=== PATIENT | female | born 1930 | race African-American/Black ===

== ENCOUNTER 2017-12-06 09:56 | Emergency (ER) | payer OTHER, MEDICAID ==
[~2017-12-06] VITALS: Ht 165.1 cm; Wt 70.0 kg
[~2017-12-06 09:56] MED LIST: DYAZ37.57 PO; ENAL10TA7 PO; GLIP5 OR; METF-324 PO; MEVA40TA PO; POTA-267 PO
[2017-12-06 09:59] VITALS: BP 242/111; PULSE 75; RESP 16; TEMP 97.6; O2SAT 97
[2017-12-06] MEDS ORDERED: DEXTROSE 50% IN WATER 50 ML SYRINGE ONE (10:03)
[2017-12-06] MEDS ORDERED: SODIUM CHLORIDE 0.9% FLUSH 10 ML FLUSH IVF PRN (10:15)
--- NOTE | 2017-12-06 10:35 | PD ---
HPI Chief Complaint: Abnormal Results Time Seen by Provider: 10:09 Travel History International Travel<30 days: No Contact w/Intl Traveler<30days: No Traveled to known affect area: No History of Present Illness HPI Patient is a 87-year-old female with history of hypertension, diabetes currently taking metformin as well as glyburide, presents the emergency room for evaluation of hypoglycemia. As per EMS, they were called to the home earlier this morning by patient's son as patient appeared altered. When EMS arrived on scene, blood sugar was 30. EMS were unable to obtain an IV line on route to the emergency room, no meds were given to her by EMS. Upon arrival to the ER, 1 amp of D50 was given to patient as well as a juice cup, patient currently alert and oriented 3. Patient reports that she is a diabetic, reports that her son usually wakes her up early to give her her breakfast. Reports that she skipped breakfast this morning. Patient reports that she did not take her morning meds. Patient reports that she feels fine at this time, patient with no complaints. Patient denies any chest pain or shortness of breath, patient denies any abdominal pain, denies any nausea or vomiting. Patient with no other complaints at this time. PFSH Past Medical History Cancer: Yes (Breast Ca) Diabetes: Yes Diminished Hearing: No Hypertension: Yes Tetanus Vaccination: < 5 Years Influenza Vaccination: Yes ?: Not Menopausal: Yes Past Surgical History Mastectomy: Yes (rt breast) Social History Alcohol Use: No Tobacco Use: No Substance Use: No Allergies-Medications (Allergen,Severity, Reaction): Coded Allergies: penicillin G (Unverified Allergy, Severe, RASHES, 03/28/17) codeine (Unverified Allergy, Intermediate, RASHES, 03/28/17) Reported Meds & Prescriptions Reported Meds & Active Scripts Active Reported Glipizide 5 Mg Tab 5 Mg OR BID Dyazide (Triamterene/HCTZ) 37.5 Mg/25 Mg Cap 37.5 - PO DAILY Klor-Con 10 (Potassium Chloride) 10 Meq Tab 10 Meq PO DAILY Enalapril Maleate 10 Mg Tab 10 Mg PO DAILY Lovastatin 40 Mg Tab 40 Mg PO DAILY Glucophage (Metformin HCl) 1,000 Mg Tab 1,000 Mg PO BID Review of Systems General / Constitutional: No: Fever Eyes: No: Visual changes HENT: No: Headaches Cardiovascular: No: Chest Pain or Discomfort Respiratory: No: Shortness of Breath Gastrointestinal: No: Abdominal Pain Genitourinary: No: Dysuria Musculoskeletal: No: Pain Skin: No Rash Neurologic: No: Weakness Psychiatric: No: Depression Endocrine: No: Polydipsia Hematologic/Lymphatic: No: Easy Bruising Physical Exam Narrative GENERAL: No acute distress, nontoxic SKIN: Focused skin assessment warm/dry. HEAD: Atraumatic. Normocephalic. EYES: Pupils equal and round. No scleral icterus. No injection or drainage. ENT: No nasal bleeding or discharge. Mucous membranes pink and moist. NECK: Trachea midline. No JVD. CARDIOVASCULAR: Regular rate and rhythm. No murmur appreciated. RESPIRATORY: No accessory muscle use. Clear to auscultation. Breath sounds equal bilaterally. GASTROINTESTINAL: Abdomen soft, non-tender, nondistended. Hepatic and splenic margins not palpable. MUSCULOSKELETAL: No obvious deformities. No clubbing. No cyanosis. No edema. NEUROLOGICAL: Awake and alert. No obvious cranial nerve deficits. Motor grossly within normal limits. Normal speech. PSYCHIATRIC: Appropriate mood and affect; insight and judgment normal. Data Data Last Documented VS Vital Signs Date Time Temp Pulse Resp B/P (MAP) Pulse Ox O2 Delivery O2 Flow Rate FiO2 12/06/17 13:08 75 192/79 (116) 12/06/17 12:26 18 12/06/17 10:12 Room Air 12/06/17 09:59 97.6 97 Orders Orders Dextrose 50% In Jaswinder (Syr) Inj (D50w (Syr (12/06/17 10:03) Complete Blood Count With Diff (12/06/17 10:12) Comprehensive Metabolic Panel (12/06/17 10:12) Urinalysis - C+S If Indicated (12/06/17 10:12) Blood Glucose (12/06/17 10:12) Blood Glucose (12/06/17 10:42) Blood Glucose (12/06/17 10:12) Blood Glucose (12/06/17 11:12) Ecg Monitoring (12/06/17 10:12) Iv Access Insert/Monitor (12/06/17 10:12) Oximetry (12/06/17 10:12) NPO (12/06/17 10:12) Sodium Chloride 0.9% Flush (Ns Flush) (12/06/17 10:15) Diet Regular Basic (12/06/17 Breakfast) Electrocardiogram (12/06/17 10:05) Hydralazine Inj (Apresoline Inj) (12/06/17 12:30) Blood Glucose (12/06/17 12:53) Electrocardiogram (12/06/17 11:42) Labs Laboratory Tests Test 12/06/17 10:15 12/06/17 10:40 White Blood Count 6.1 TH/MM3 Red Blood Count 4.03 MIL/MM3 Hemoglobin 11.6 GM/DL Hematocrit 36.9 % Mean Corpuscular Volume 91.6 FL Mean Corpuscular Hemoglobin 28.9 PG Mean Corpuscular Hemoglobin Concent 31.6 % Red Cell Distribution Width 14.9 % Platelet Count 214 TH/MM3 Mean Platelet Volume 9.2 FL Neutrophils (%) (Auto) 66.2 % Lymphocytes (%) (Auto) 27.3 % Monocytes (%) (Auto) 5.9 % Eosinophils (%) (Auto) 0.2 % Basophils (%) (Auto) 0.4 % Neutrophils # (Auto) 4.0 TH/MM3 Lymphocytes # (Auto) 1.7 TH/MM3 Monocytes # (Auto) 0.4 TH/MM3 Eosinophils # (Auto) 0.0 TH/MM3 Basophils # (Auto) 0.0 TH/MM3 CBC Comment DIFF FINAL Differential Comment Blood Urea Nitrogen 11 MG/DL Creatinine 0.65 MG/DL Random Glucose 32 MG/DL Total Protein 6.8 GM/DL Albumin 3.2 GM/DL Calcium Level 8.8 MG/DL Alkaline Phosphatase 74 U/L Aspartate Amino Transf (AST/SGOT) 25 U/L Alanine Aminotransferase (ALT/SGPT) 23 U/L Total Bilirubin 0.6 MG/DL Sodium Level 144 MEQ/L Potassium Level 4.4 MEQ/L Chloride Level 113 MEQ/L Carbon Dioxide Level 22.7 MEQ/L Anion Gap 8 MEQ/L Estimat Glomerular Filtration Rate 105 ML/MIN Urine Color LIGHT-YELLOW Urine Turbidity CLEAR Urine pH 5.0 Urine Specific [place] 1.010 Urine Protein NEG mg/dL Urine Glucose (UA) 300 mg/dL Urine Ketones 10 mg/dL Urine Occult Blood NEG Urine Nitrite NEG Urine Bilirubin NEG Urine Urobilinogen LESS THAN 2.0 MG/DL Urine Leukocyte Esterase NEG Urine WBC 1 /hpf Urine Squamous Epithelial Cells 1 /hpf Urine Bacteria RARE /hpf Urine Mucus FEW /lpf Microscopic Urinalysis Comment CULT NOT INDICATED MDM Medical Decision Making Medical Screen Exam Complete: Yes Emergency Medical Condition: Yes Medical Record Reviewed: Yes Interpretation(s) EKG at 1005: NSR at 74bpm, qt/qtc: 424/451, 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 Patient has received D50 in the emergency room, patient currently alert and oriented 3 with no complaints. Patient did not take her blood sugar medicines this morning. During the course of the patients emergency department visit, the patients history, examination, and differential diagnosis were reviewed with the patient. The patient was placed on a monitoring and evaluation advisor with oximetry and frequent blood pressure monitoring. The patient had an IV access obtained and blood work sent for analysis. The patient was initially provided D50 IV, juice and meal tray. The patients laboratory studies were reviewed and remarkable for CBC & BMP Diagram 12/06/17 10:15 Total Protein 6.8, Albumin 3.2 L, Calcium Level 8.8, Alkaline Phosphatase 74, Aspartate Amino Transf (AST/SGOT) 25, Alanine Aminotransferase (ALT/SGPT) 23, Total Bilirubin 0.6 BS at 1131: 181 BS at 1322: 110 Patient asymptomatic at this time. Patient was monitored for over 3 hours in the ER and did have serial Blood glucose checks. Patient stable to be discharged to home at this time. BS at discharge 104 Diagnosis Primary Impression: Hypoglycemia Patient Instructions: General Instructions Additional Instructions: Please check your blood sugars at home! Please follow up with your primary care doctor in 2-3 days Return to the ER if symptoms worsen or progress Return to the ER as needed Disposition: 01 DISCHARGE HOME Condition: Stable JimLili Vaibhav LEVIN Dec 06, 2017 10:35
[2017-12-06 10:51] LABS: BASOPHIL % 0.4 % (0.0-2.0); EOSINOPHIL % 0.2 % (0.0-4.0); HEMATOCRIT 36.9 % (35.0-46.0); HEMOGLOBIN 11.6 GM/DL (11.6-15.3); LYMPH % 27.3 % (9.0-44.0); LYMPHOCYTE # 1.7 TH/MM3 (1.0-4.8); MEAN CELL VOLUME 91.6 FL (80.0-100.0); MEAN CORPUSCULAR HEMOGLOBIN 28.9 PG (27.0-34.0); MEAN CORPUSCULAR HGB CONC 31.6 % (32.0-36.0); MEAN PLATELET VOLUME 9.2 FL (7.0-11.0); MONO % 5.9 % (0.0-8.0); MONOCYTE # 0.4 TH/MM3 (0-0.9); NEUT % 66.2 % (16.0-70.0); PLATELET COUNT 214 TH/MM3 (150-450); RED BLOOD COUNT 4.03 MIL/MM3 (4.00-5.30); RED CELL DISTRIBUTION WIDTH 14.9 % (11.6-17.2); WHITE BLOOD COUNT 6.1 TH/MM3 (4.0-11.0)
[2017-12-06 11:20] LABS: ALBUMIN 3.2 GM/DL (3.4-5.0); ALKALINE PHOSPHATASE 74 U/L (45-117); ALT (GPT) 23 U/L (10-53); AST (GOT) 25 U/L (15-37); BICARBONATE 22.7 MEQ/L (21.0-32.0); BLOOD UREA NITROGEN 11 MG/DL (7-18); CALCIUM 8.8 MG/DL (8.5-10.1); CHLORIDE 113 MEQ/L (98-107); CREATININE 0.65 MG/DL (0.50-1.00); GLOMERULAR FILTRATION RATE 105 ML/MIN (>89); SODIUM (NA) 144 MEQ/L (136-145); TOTAL BILIRUBIN ADULT 0.6 MG/DL (0.2-1.0); TOTAL PROTEIN 6.8 GM/DL (6.4-8.2)
[2017-12-06 11:22] LABS: BACTERIA, URINE RARE /hpf; BILIRUBIN, URINE NEG (NEG); BLOOD, URINE NEG (NEG); GLUCOSE,URINE 300 mg/dL (NEG); KETONE, URINE 10 mg/dL (NEG); MUCUS URINE FEW /lpf (OCC); NITRITE,URINE NEG (NEG); SQUAMOUS EPITHELIAL CELL URINE 1 /hpf (0-5); URINE COLOR LIGHT-YELLOW (YELLW/STRAW); URINE LEUKOCYTE ESTERASE NEG (NEG)
[2017-12-06 11:29] LABS: GLUCOSE,RANDOM 32 MG/DL (74-106)
--- NOTE | 2017-12-06 12:16 | EKG ---
Date Performed: 12/06/2017 Time Performed: 10:05:32 PTAGE: 87 years EKG: Sinus rhythm RIGHT BUNDLE BRANCH BLOCK ABNORMAL ECG INTERPRETATION BASED ON A DEFAULT AGE OF 42 YEARS NO PREVIOUS TRACING DOCTOR: Tarik Whitehead Interpretating Date/Time 12/06/2017 12:16:04
[2017-12-06 12:26] VITALS: BP 244/118; PULSE 74; RESP 18
[2017-12-06] MEDS ORDERED: hydrALAZINE HCL 20 MG/ML VIAL IV PUSH ONE (12:30)
[2017-12-06 13:08] VITALS: BP 192/79; PULSE 75
--- NOTE | 2017-12-07 16:24 | EKG ---
Date Performed: 12/06/2017 Time Performed: 11:42:37 PTAGE: 87 years EKG: Sinus rhythm MARKED LEFT AXIS DEVIATION RIGHT BUNDLE BRANCH BLOCK ABNORMAL ECG PREVIOUS TRACING 12/06/17 Since the previous tracing, no significant change noted DOCTOR: Yann Oliveira Interpretating Date/Time 12/07/2017 16:23:20
== END 2017-12-06 14:22 | disposition home or self-care (01) ==
LOC: NEPC 09:56
DX: E16.2 Hypoglycemia, unspecified (principal); E11.9 Type 2 diabetes mellitus without complications; I10 Essential (primary) hypertension; R94.31 Abnormal electrocardiogram [ECG] [EKG]; Z88.0 Allergy status to penicillin; Z88.5 Allergy status to narcotic agent
CPT/HCPCS: 80053; 81001; 85025; 93005; 96374; 96375; 99284; J0360